=== PATIENT | female | born 1955 | race Caucasian/White ===

== ENCOUNTER 2017-10-20 13:25 | Outpatient (CLI) | payer BC ==
[2017-10-20] MEDS ORDERED: Gadobenate Dimeglumine 529 MG/1 ML (20ML VIAL) ONE (13:43)
== END 2017-10-20 13:26 | disposition home or self-care (01) ==
LOC: BICMRI 13:25
PROVIDERS: ATTEND Internal Medicine Gastroenterology
DX: R16.0 Hepatomegaly, not elsewhere classified (principal); I72.8 Aneurysm of other specified arteries; N28.1 Cyst of kidney, acquired; K44.9 Diaphragmatic hernia without obstruction or gangrene; E83.119 Hemochromatosis, unspecified; Z90.49 Acquired absence of other specified parts of digestive tract
CPT/HCPCS: 74183; 82565; A9579

== ENCOUNTER 2020-11-04 16:11 | Outpatient (CLI) | payer BC | END 2020-11-04 16:12 | disposition home or self-care (01) | LOC: BICRAD 16:11 | PROVIDERS: ATTEND Internal Medicine Rheumatology | DX: M25.552 Pain in left hip (principal) | CPT/HCPCS: 73523 ==